=== PATIENT | male | born 1975 | race Caucasian/White ===

== ENCOUNTER 2017-01-05 08:20 | Outpatient (CLI) | payer OTHER ==
[2017-01-05 09:06] LABS: eGFR (African) > 60; eGFR (Non-African) > 60
== END 2017-01-05 08:21 ==
LOC: LAB 08:20
PROVIDERS: ATTEND Physician Assistant
DX: Z00.00 Encounter for general adult medical examination without abnormal findings (principal); Z13.6 Encounter for screening for cardiovascular disorders
CPT/HCPCS: 36415; 80053; 80061

== ENCOUNTER 2019-06-26 13:48 | Outpatient (CLI) | payer OTHER ==
[2019-06-26 15:06] LABS: eGFR (Non-African) > 60
[2019-06-26 15:07] LABS: HDL 52 mg/dL (>40)
== END 2019-06-26 13:53 ==
LOC: LAB 13:48
PROVIDERS: ATTEND Nurse Practitioner Family
DX: Z00.00 Encounter for general adult medical examination without abnormal findings (principal)
CPT/HCPCS: 36415; 80053; 80061